=== PATIENT | female | born 1945 | race Caucasian/White ===

== ENCOUNTER 2017-04-26 10:47 | Inpatient (IN) | payer BC, MEDICARE ==
[~2017-04-26] VITALS: Ht 160 cm; Wt 80.4 kg
[2017-04-26] VITALS (11 sets, daily range): BP systolic 106–157; BP diastolic 44–98
[~2017-04-26 10:47] MED LIST: ALPR0.254 PO; ASCO500C5 PO; ATOR1TAB PO; CHOL20002 PO; CLOP75TA41 PO; DULO1CAP3 PO; FURO20TA PO; GABA-339 PO; HYDR2INJ PO; ISOS30TA4 PO; LINA5TAB PO; MAGN400T18 PO; METO25TA5 PO; NIAC500T71 PO; POTA10TA51 PO; PRI50T PO; TRAZ100T2 PO; VALS40TA2 PO
[2017-04-26 11:37] LABS: Basophils # (auto) 0 uL; Basophils % (auto) 0.5 % (0.0-2.0); CONDITION Y; DEFINITIVE SEE PRINTOUT; Eosinophils # (auto) 0.2 uL; Eosinophils % (auto) 2.1 % (0.0-7.0); Hematocrit 22.3 % (36.0-46.0); Lymphocytes % (auto) 13.3 % (10.0-50.0); Mean Corpuscular Hemoglobin 20.2 pg (28.0-32.0); Mean Corpuscular Hgb Conc. 29.2 g/dL (32.0-36.0); Mean Corpuscular Volume 69.2 fL (80.0-100.0); Mean Platelet Volume 8.1 fL (7.4-10.4); Monocytes # (auto) 0.6 uL; Monocytes % (auto) 8.2 % (0.0-12.0); Neutrophils # (auto) 5.5 uL; Neutrophils % (auto) 75.9 % (37.0-80.0); Platelet Count (auto) 251 10^3/uL (140-450); White Blood Cell 7.3 10^3/uL (4.4-10.8)
[2017-04-26] MEDS ORDERED: SODIUM CHLORIDE 0.9% 1,000 ML IVB ONE (11:44)
[2017-04-26 11:48] LABS: Hemoglobin 6.5 g/dL (12.2-16.2)
[2017-04-26 11:58] LABS: Albumin 2.4 g/dL (3.4-5.0); BUN/Creatinine Ratio 25.3; Bilirubin, Total 0.2 mg/dL (0.2-1.0); Calcium 7.9 mg/dL (8.5-10.1); Potassium 5.4 mmol/L (3.5-5.1)
[2017-04-26 12:03] LABS: Anisocytosis Slight; Hypochromia Slight; Ovalocytes FEW; Platelet Estimate Adequate
[2017-04-26 12:30] LABS: Urine Bilirubin Negative (Negative); Urine Blood Negative /uL (Negative); Urine Color Yellow (Yellow); Urine Glucose Normal (Normal); Urine Ketone Negative (Negative); Urine RBC 2 /hpf (0 - 4); Urine Urobilinogen Normal (Negative); Urine WBC Clumps PRESENT /hpf (None Seen); Urine pH 5.5 (5.0-8.0)
[2017-04-26 12:31] LABS: Urine Nitrite POSITIVE (Negative)
[2017-04-26] MEDS ORDERED: LEVOFLOXACIN 500MG 100 ML IV ONE (13:00)
[2017-04-26 13:30] LABS: INR 0.89 (0.9-1.15); Partial Thromboplastin Time 23.6 sec (22.64-33.71); Prothrombin Time 9.7 sec (9.37-12.3)
[2017-04-26] MEDS ORDERED: metroNIDAZOLE 500MG/100ML 100 ML IV ONE (14:45)
[2017-04-26 14:52] LABS: Base Excess -4.4 mmol/L (-2.0-2.0); Blood 02Sat 95.3 % (96-100); Blood COHb 1.1 % (0.5-1.5); Blood MetHb 0.5 % (0.0-1.5); HCO3 23.2 mmol/L (22-26.0); HHb 4.6 % (0.0-5.0); MODE NASAL CANNULA; O2Hb 93.8 % (94.0-97.0); PCO2 59.9 mmHg (35.0-45.0); PCO2(T) 59.9 mmHg (35.0-45.0); PO2 105.5 mmHg (80.0-100.0); PO2(T) 105.5 mmHg (80.0-100.0); Sample Type Arterial; pH 7.205 (7.350-7.450)
[2017-04-26] MEDS ORDERED: HYDROmorphone HCL 2 MG TAB PO PRN ×2 (15:00→15:15)
[2017-04-26] MEDS ORDERED: ALPRAZolam 0.25 MG TAB PO PRN (15:00)
[2017-04-26] MEDS ORDERED: NITROGLYCERIN 0.4 MG SL TAB SL PRN (15:15)
[2017-04-26] MEDS ORDERED: METOPROLOL TARTRATE 25 MG TAB PO ONE (15:15)
[2017-04-26] MEDS ORDERED: VALSARTAN 80 MG TAB PO ONE (15:15)
[2017-04-26] MEDS ORDERED: TEMAZEPAM 15 MG CAP PO PRN (15:15)
[2017-04-26] MEDS ORDERED: ONDANSETRON HCL 4 MG/2 ML VIAL IV PRN (15:15)
[2017-04-26] MEDS ORDERED: ISOSORBIDE MONONITRATE 60 MG TAB PO ONE (15:15)
[2017-04-26] MEDS ORDERED: DEXTROSE (50%) 50ML SYRG IV PRN (15:15)
[2017-04-26] MEDS ORDERED: MORPHINE SULF INJ 2 MG/ML SYRINGE 1ML IV PRN (15:15)
[2017-04-26] MEDS: FAMOTIDINE 20 MG TAB PO SCH ×2 (15:57→23:01)
[2017-04-26 16:43] LABS: Base Excess -8.9 mmol/L (-2.0-2.0); Blood 02Sat 89.7 % (96-100); Blood COHb 0.6 % (0.5-1.5); Blood MetHb 0.3 % (0.0-1.5); HCO3 18.5 mmol/L (22-26.0); HHb 10.2 % (0.0-5.0); MODE NASAL CANNULA; O2Hb 88.9 % (94.0-97.0); PCO2 47.7 mmHg (35.0-45.0); PCO2(T) 47.7 mmHg (35.0-45.0); PO2 71.2 mmHg (80.0-100.0); PO2(T) 71.2 mmHg (80.0-100.0); Room 1029-ERT; Sample Type Arterial; pH 7.207 (7.350-7.450)
[2017-04-26] MEDS: SODIUM CHLORIDE 0.9% 1,000 ML IV SCH (17:11)
[2017-04-26] MEDS: InsuLIN REG 1unit/0.01ml Soln (100units/ml) SC SCH ×2 (17:47→22:00)
[2017-04-26] MEDS: ACCU-CHEK COMFORT CURVE STRIP VI SCH ×2 (17:47→23:01)
[2017-04-26] MEDS: NIACIN 100 MG TAB PO SCH (18:00)
[2017-04-26] MEDS: IPRATROPIUM BROM 0.5 MG/2.5ML INH SOL NEB SCH (18:19)
[2017-04-26] MEDS: ALBUTEROL SULF 2.5 MG/0.5ML(0.5%) NEB SOLN NEB SCH (18:19)
[2017-04-26] MEDS: Boost Glucose Control 8 Ounces PO SCH ×2 (18:20→22:00)
[2017-04-26 20:44] LABS: Allen Test Modified; Base Excess -7.6 mmol/L (-2.0-2.0); Blood 02Sat 78.9 % (96-100); Blood COHb 0.9 % (0.5-1.5); Blood MetHb 0.2 % (0.0-1.5); HCO3 20.2 mmol/L (22-26.0); HHb 20.9 % (0.0-5.0); MODE NASAL CANNULA; PCO2 51.5 mmHg (35.0-45.0); PCO2(T) 51.5 mmHg (35.0-45.0); PO2 49.6 mmHg (80.0-100.0); PO2(T) 49.6 mmHg (80.0-100.0); Room 1029-ERT; Sample Type Arterial; pH 7.212 (7.350-7.450)
[2017-04-26] MEDS ORDERED: POTASSIUM CHL 20 Meq TABLET PO SCH (22:00)
[2017-04-26] MEDS: metroNIDAZOLE 500MG/100ML 100 ML IV SCH (22:00)
[2017-04-26] MEDS ORDERED: MAGNESIUM OXIDE 400 MG TAB PO SCH ×2 (22:00)
[2017-04-26 22:18] LABS: Allen Test Yes; Base Excess -9.5 mmol/L (-2.0-2.0); Blood 02Sat 94.2 % (96-100); Blood COHb 0.6 % (0.5-1.5); Blood MetHb 0.4 % (0.0-1.5); HCO3 18.3 mmol/L (22-26.0); HHb 5.7 % (0.0-5.0); MODE MASK - BIPAP; O2Hb 93.3 % (94.0-97.0); PCO2 48.6 mmHg (35.0-45.0); PCO2(T) 48.6 mmHg (35.0-45.0); PIP 12; PO2 86.5 mmHg (80.0-100.0); PO2(T) 86.5 mmHg (80.0-100.0); Room 1029-ERT; Sample Type Arterial; Spont Vt 515; pH 7.194 (7.350-7.450)
[2017-04-26] MEDS: traZODone HCL 50 MG TAB PO SCH (23:00)
[2017-04-26] MEDS: METOPROLOL TARTRATE 25 MG TAB PO SCH (23:00)
[2017-04-26] MEDS: ATORVASTATIN 20 MG TAB PO SCH (23:00)
[2017-04-26] MEDS: GABAPENTIN 300 MG CAP PO SCH (23:01)
[2017-04-27] MEDS: ALBUTEROL SULF 2.5 MG/0.5ML(0.5%) NEB SOLN NEB SCH ×4 (00:28→18:45)
[2017-04-27] MEDS: IPRATROPIUM BROM 0.5 MG/2.5ML INH SOL NEB SCH ×4 (00:28→18:45)
[2017-04-27] MEDS ORDERED: SODIUM BICARBONATE 8.4 % INJ 50ML VIAL IV ONE (00:30)
[2017-04-27 02:13] LABS: Allen Test Modified; Base Excess -5.7 mmol/L (-2.0-2.0); Blood 02Sat 94.5 % (96-100); Blood COHb 0.3 % (0.5-1.5); Blood MetHb 0.5 % (0.0-1.5); HCO3 21.1 mmol/L (22-26.0); HHb 5.5 % (0.0-5.0); MODE MASK - BIPAP; O2Hb 93.7 % (94.0-97.0); PCO2 47.3 mmHg (35.0-45.0); PCO2(T) 47.3 mmHg (35.0-45.0); PIP 12; PO2 86.8 mmHg (80.0-100.0); PO2(T) 86.8 mmHg (80.0-100.0); Room 1029-ERT; Sample Type Arterial; Spont Vt 459; pH 7.267 (7.350-7.450)
[2017-04-27 04:27] LABS: Basophils # (auto) 0.1 uL; Basophils % (auto) 0.5 % (0.0-2.0); CONDITION Y; DEFINITIVE SEE PRINTOUT; Eosinophils # (auto) 0.1 uL; Eosinophils % (auto) 0.6 % (0.0-7.0); Hematocrit 28.6 % (36.0-46.0); Lymphocytes # (auto) 0.7 uL; Lymphocytes % (auto) 7.7 % (10.0-50.0); Mean Corpuscular Hemoglobin 23.1 pg (28.0-32.0); Mean Corpuscular Hgb Conc. 31.5 g/dL (32.0-36.0); Mean Corpuscular Volume 73.2 fL (80.0-100.0); Mean Platelet Volume 8.2 fL (7.4-10.4); Monocytes # (auto) 0.6 uL; Monocytes % (auto) 5.9 % (0.0-12.0); Neutrophils % (auto) 85.3 % (37.0-80.0); Platelet Count (auto) 239 10^3/uL (140-450); White Blood Cell 9.4 10^3/uL (4.4-10.8)
[2017-04-27 04:37] LABS: Red Cell Distribution Width 21.6 % (11.6-16.0)
[2017-04-27 04:49] LABS: Albumin 2.2 g/dL (3.4-5.0); BUN/Creatinine Ratio 27.6; Calcium 7.4 mg/dL (8.5-10.1); Magnesium 2.6 mg/dL (1.6-2.6); Potassium 5.1 mmol/L (3.5-5.1)
[2017-04-27 04:53] LABS: Bilirubin, Total 0.2 mg/dL (0.2-1.0); Total Protein 5.8 g/dL (6.4-8.2)
[2017-04-27 05:00] LABS: Platelet Estimate Adequate
[2017-04-27 05:01] LABS: Anisocytosis Moderate; Microcytosis Moderate
[2017-04-27 05:02] LABS: Basophilic Stippling FEW; Ovalocytes FEW
[2017-04-27 05:03] LABS: Hypersegmented Neutrophils Present
[2017-04-27] MEDS: metroNIDAZOLE 500MG/100ML 100 ML IV SCH ×3 (05:38→22:12)
[2017-04-27] MEDS: Boost Glucose Control 8 Ounces PO SCH ×4 (06:15→22:12)
[2017-04-27] MEDS: ACCU-CHEK COMFORT CURVE STRIP VI SCH ×4 (06:42→22:15)
[2017-04-27] MEDS: InsuLIN REG 1unit/0.01ml Soln (100units/ml) SC SCH ×4 (06:43→22:14)
[2017-04-27] MEDS: NIACIN 100 MG TAB PO SCH ×2 (08:00→18:46)
[2017-04-27] MEDS: SODIUM CHLORIDE 0.9% 1,000 ML IV SCH (08:02)
[2017-04-27 08:04] VITALS: BP 122/56
[2017-04-27 08:15] LABS: Allen Test Yes; Base Excess -3.4 mmol/L (-2.0-2.0); Blood 02Sat 91.8 % (96-100); Blood COHb 0.8 % (0.5-1.5); Blood MetHb 0.3 % (0.0-1.5); HCO3 23.5 mmol/L (22-26.0); HHb 8.1 % (0.0-5.0); MODE MASK - BIPAP; O2Hb 90.8 % (94.0-97.0); PCO2 52.1 mmHg (35.0-45.0); PCO2(T) 52.1 mmHg (35.0-45.0); PO2 72.4 mmHg (80.0-100.0); PO2(T) 72.4 mmHg (80.0-100.0); Pressure Support 7; Room 1029-ERT; Sample Type Arterial; Spont Vt 550; pH 7.272 (7.350-7.450)
[2017-04-27] MEDS: ASCORBIC ACID 500 MG TAB PO SCH (10:00)
[2017-04-27] MEDS: CHOLECALCIFEROL (VITD3) 1,000 UNIT TAB PO SCH (10:00)
[2017-04-27] MEDS: DULoxetine HCL 30 MG CAP PO SCH (10:00)
[2017-04-27] MEDS: ISOSORBIDE MONONITRATE 60 MG TAB PO SCH (10:00)
[2017-04-27] MEDS ORDERED: VALSARTAN 80 MG TAB PO SCH (10:00)
[2017-04-27] MEDS: MULTIPLE VITAMIN TAB PO SCH (10:00)
[2017-04-27] MEDS ORDERED: ISOSORBIDE MONONITRATE 60 MG TAB PO SCH (10:00)
[2017-04-27] MEDS: FAMOTIDINE 20 MG TAB PO SCH ×2 (10:00→22:14)
[2017-04-27] MEDS: GABAPENTIN 300 MG CAP PO SCH ×2 (10:00→22:14)
[2017-04-27] MEDS: METOPROLOL TARTRATE 25 MG TAB PO SCH ×2 (10:00→22:13)
[2017-04-27 10:30] VITALS: BP 125/62
[2017-04-27] MEDS: LEVOFLOXACIN 250MG 50 ML IV SCH (10:41)
[2017-04-27 12:25] VITALS: BP 118/53
[2017-04-27 14:09] VITALS: BP 123/62
[2017-04-27 18:09] LABS: Allen Test Yes; Base Excess -2.9 mmol/L (-2.0-2.0); Blood COHb 0.4 % (0.5-1.5); Blood MetHb 0.4 % (0.0-1.5); HCO3 23.7 mmol/L (22-26.0); HHb 6.9 % (0.0-5.0); MODE NASAL CANNULA; O2Hb 92.3 % (94.0-97.0); PCO2 49.7 mmHg (35.0-45.0); PCO2(T) 49.7 mmHg (35.0-45.0); PO2 76.3 mmHg (80.0-100.0); PO2(T) 76.3 mmHg (80.0-100.0); Room 1029-ERT; Sample Type Arterial; pH 7.296 (7.350-7.450)
[2017-04-27 20:30] VITALS: BP 148/69
[2017-04-27] MEDS: traZODone HCL 50 MG TAB PO SCH (22:12)
[2017-04-27] MEDS: ATORVASTATIN 20 MG TAB PO SCH (22:13)
[2017-04-27] MEDS: MORPHINE SULF INJ 2 MG/ML SYRINGE 1ML IV PRN (22:16)
[2017-04-28] VITALS: BP 151/73
[2017-04-28] MEDS: SODIUM CHLORIDE 0.9% 1,000 ML IV SCH (00:03)
[2017-04-28 04:00] VITALS: BP 182/73
[2017-04-28] MEDS: metroNIDAZOLE 500MG/100ML 100 ML IV SCH ×3 (05:14→21:52)
[2017-04-28] MEDS: Boost Glucose Control 8 Ounces PO SCH ×4 (05:14→21:55)
[2017-04-28] MEDS: cloNIDine HCL 0.1 MG TAB PO PRN (05:15)
[2017-04-28 06:31] LABS: Basophils # (auto) 0 uL; Basophils % (auto) 0.1 % (0.0-2.0); CONDITION Y; DEFINITIVE SEE PRINTOUT; Eosinophils # (auto) 0.1 uL; Hematocrit 30.5 % (36.0-46.0); Hemoglobin 9.3 g/dL (12.2-16.2); Lymphocytes # (auto) 0.8 uL; Lymphocytes % (auto) 8.5 % (10.0-50.0); Mean Corpuscular Hemoglobin 22.7 pg (28.0-32.0); Mean Corpuscular Hgb Conc. 30.5 g/dL (32.0-36.0); Mean Corpuscular Volume 74.5 fL (80.0-100.0); Mean Platelet Volume 8.4 fL (7.4-10.4); Monocytes # (auto) 0.6 uL; Monocytes % (auto) 7.1 % (0.0-12.0); Neutrophils # (auto) 7.5 uL; Neutrophils % (auto) 83.3 % (37.0-80.0); Platelet Count (auto) 249 10^3/uL (140-450)
[2017-04-28] MEDS: ACCU-CHEK COMFORT CURVE STRIP VI SCH ×4 (06:31→22:03)
[2017-04-28] MEDS: InsuLIN REG 1unit/0.01ml Soln (100units/ml) SC SCH ×4 (06:32→21:54)
[2017-04-28 06:46] LABS: Potassium 4.1 mmol/L (3.5-5.1)
[2017-04-28 06:48] LABS: Red Cell Distribution Width 22.7 % (11.6-16.0)
[2017-04-28 06:50] LABS: BUN/Creatinine Ratio 26.7; Calcium 8.1 mg/dL (8.5-10.1); Magnesium 2.4 mg/dL (1.6-2.6); Phosphorus 2.2 mg/dL (2.5-4.90)
[2017-04-28] MEDS: MORPHINE SULF INJ 2 MG/ML SYRINGE 1ML IV PRN ×2 (06:59→22:06)
[2017-04-28] MEDS: ALBUTEROL SULF 2.5 MG/0.5ML(0.5%) NEB SOLN NEB SCH ×4 (07:20→21:03)
[2017-04-28] MEDS: IPRATROPIUM BROM 0.5 MG/2.5ML INH SOL NEB SCH ×4 (07:20→21:03)
[2017-04-28] MEDS: NIACIN 100 MG TAB PO SCH (08:00)
[2017-04-28] MEDS ORDERED: LIDOCAINE VISCOUS 2% 15ML UD ONE ×2 (09:08→18:12)
[2017-04-28] MEDS ORDERED: diphenhdrAMINE HCL 50 MG/1 ML VL ONE (09:08)
[2017-04-28] MEDS ORDERED: SODIUM CHLORIDE LOCK 10 ML ONE (09:08)
[2017-04-28] MEDS ORDERED: MIDAZOLAM HCL 5 MG/ML-1ML VIAL ONE (09:08)
[2017-04-28 10:10] LABS: Microcytosis Moderate
[2017-04-28 10:17] LABS: Anisocytosis Moderate; Hypochromia Moderate; Platelet Estimate Adequate
[2017-04-28 10:19] LABS: Ovalocytes FEW; Stomatocytes Few
[2017-04-28] MEDS: LEVOFLOXACIN 250MG 50 ML IV SCH (11:17)
[2017-04-28] MEDS: D5W/SOD CHL 0.45% 1,000 ML IV SCH ×2 (11:17→23:05)
[2017-04-28] MEDS: SODIUM FERR GLUC 62.5MG/5ML 125 MG in SODIUM CHL 0.9% 100 ML IV SCH (11:17)
[2017-04-28] MEDS: DULoxetine HCL 30 MG CAP PO SCH (11:19)
[2017-04-28] MEDS: VALSARTAN 80 MG TAB PO SCH (11:36)
[2017-04-28] MEDS: METOPROLOL TARTRATE 25 MG TAB PO SCH ×2 (11:36→21:53)
[2017-04-28] MEDS: ISOSORBIDE MONONITRATE 60 MG TAB PO SCH (11:36)
[2017-04-28] MEDS: MULTIPLE VITAMIN TAB PO SCH (11:37)
[2017-04-28] MEDS: ASCORBIC ACID 500 MG TAB PO SCH (11:37)
[2017-04-28] MEDS: CHOLECALCIFEROL (VITD3) 1,000 UNIT TAB PO SCH (11:37)
[2017-04-28] MEDS: GABAPENTIN 300 MG CAP PO SCH ×2 (11:37→21:54)
[2017-04-28] MEDS: FAMOTIDINE 20 MG TAB PO SCH ×2 (11:37→21:53)
[2017-04-28 12:00] VITALS: BP 176/78
[2017-04-28 13:38] LABS: Allen Test Modified; Base Excess -1.7 mmol/L (-2.0-2.0); Blood COHb 0.3 % (0.5-1.5); Blood MetHb 0.1 % (0.0-1.5); MODE NASAL CANNULA; O2Hb 92.6 % (94.0-97.0); PCO2 44.8 mmHg (35.0-45.0); PCO2(T) 44.8 mmHg (35.0-45.0); PO2 73.8 mmHg (80.0-100.0); PO2(T) 73.8 mmHg (80.0-100.0); Room 0265D; Sample Type Arterial; pH 7.346 (7.350-7.450)
[2017-04-28 16:00] VITALS: BP 153/71
[2017-04-28] MEDS ORDERED: LIDOCAINE VISCOUS 2 % SOL 100ML MT ONE (18:15)
[2017-04-28] MEDS ORDERED: MIDAZOLAM HCL 5 MG/ML-1ML VIAL IV ONE (18:26)
[2017-04-28] MEDS ORDERED: fentaNYL CITRATE 100 MCG/2 ML VL IV ONE ×2 (18:26→18:28)
[2017-04-28] MEDS: fentaNYL CITRATE 100 MCG/2 ML VL ONE ×2 (18:26→18:28)
[2017-04-28 19:48] VITALS: BP 151/74
[2017-04-28] MEDS: Niacin SR 500mg TAB PO SCH (21:52)
[2017-04-28] MEDS: ATORVASTATIN 20 MG TAB PO SCH (21:53)
[2017-04-28] MEDS: traZODone HCL 50 MG TAB PO SCH (21:53)
[2017-04-28 23:50] VITALS: BP 138/61
[2017-04-29] MEDS: MORPHINE SULF INJ 2 MG/ML SYRINGE 1ML IV PRN ×5 (02:36→21:30)
[2017-04-29 04:00] VITALS: BP 151/75
[2017-04-29] MEDS: ALBUTEROL SULF 2.5 MG/0.5ML(0.5%) NEB SOLN NEB SCH ×4 (06:10→23:36)
[2017-04-29] MEDS: IPRATROPIUM BROM 0.5 MG/2.5ML INH SOL NEB SCH ×4 (06:10→23:36)
[2017-04-29] MEDS: InsuLIN REG 1unit/0.01ml Soln (100units/ml) SC SCH ×4 (06:12→21:57)
[2017-04-29] MEDS: metroNIDAZOLE 500MG/100ML 100 ML IV SCH ×2 (06:12→14:31)
[2017-04-29] MEDS: Boost Glucose Control 8 Ounces PO SCH ×4 (06:12→21:49)
[2017-04-29] MEDS: ACCU-CHEK COMFORT CURVE STRIP VI SCH ×4 (06:13→21:50)
[2017-04-29] MEDS: D5W/SOD CHL 0.45% 1,000 ML IV SCH (06:16)
[2017-04-29 07:35] VITALS: BP 171/77
[2017-04-29] MEDS: cloNIDine HCL 0.1 MG TAB PO PRN (07:52)
[2017-04-29 08:30] VITALS: BP 159/69
[2017-04-29 08:39] LABS: Allen Test Yes; Base Excess -1.3 mmol/L (-2.0-2.0); Blood 02Sat 94.9 % (96-100); Blood COHb 0.1 % (0.5-1.5); Blood MetHb 0.3 % (0.0-1.5); HHb 5.1 % (0.0-5.0); MODE NASAL CANNULA; O2Hb 94.5 % (94.0-97.0); PCO2 43.1 mmHg (35.0-45.0); PCO2(T) 43.1 mmHg (35.0-45.0); PO2 83.1 mmHg (80.0-100.0); PO2(T) 83.1 mmHg (80.0-100.0); Room 0265D; Sample Type Arterial; pH 7.364 (7.350-7.450)
[2017-04-29] MEDS: LEVOFLOXACIN 250MG 50 ML IV SCH (09:20)
[2017-04-29] MEDS: CHOLECALCIFEROL (VITD3) 1,000 UNIT TAB PO SCH (09:21)
[2017-04-29] MEDS: DULoxetine HCL 30 MG CAP PO SCH (09:21)
[2017-04-29] MEDS: GABAPENTIN 300 MG CAP PO SCH ×2 (09:21→21:50)
[2017-04-29] MEDS: METOPROLOL TARTRATE 25 MG TAB PO SCH ×2 (09:22→21:50)
[2017-04-29] MEDS: ASCORBIC ACID 500 MG TAB PO SCH (09:23)
[2017-04-29] MEDS: MULTIPLE VITAMIN TAB PO SCH (09:23)
[2017-04-29] MEDS: VALSARTAN 80 MG TAB PO SCH (09:23)
[2017-04-29] MEDS: ISOSORBIDE MONONITRATE 60 MG TAB PO SCH (09:24)
[2017-04-29] MEDS: FAMOTIDINE 20 MG TAB PO SCH ×2 (09:24→21:50)
[2017-04-29] MEDS: Niacin SR 500mg TAB PO SCH ×2 (09:25→21:50)
[2017-04-29] MEDS: SODIUM FERR GLUC 62.5MG/5ML 125 MG in SODIUM CHL 0.9% 100 ML IV SCH (09:36)
[2017-04-29 12:00] VITALS: BP 136/55
[2017-04-29 16:10] VITALS: BP 126/53
[2017-04-29 20:00] VITALS: BP 158/71
[2017-04-29] MEDS: ATORVASTATIN 20 MG TAB PO SCH (21:49)
[2017-04-29] MEDS: traZODone HCL 50 MG TAB PO SCH (21:49)
[2017-04-30] VITALS: BP 150/73
[2017-04-30] MEDS: D5W/SOD CHL 0.45% 1,000 ML IV SCH ×2 (01:45→17:26)
[2017-04-30 03:09] VITALS: BP 151/97
[2017-04-30] MEDS: MORPHINE SULF INJ 2 MG/ML SYRINGE 1ML IV PRN ×4 (03:20→18:52)
[2017-04-30 04:00] VITALS: BP 152/72
[2017-04-30 05:46] LABS: Basophils # (auto) 0 uL; Basophils % (auto) 0.4 % (0.0-2.0); CONDITION Y; DEFINITIVE SEE PRINTOUT; Eosinophils # (auto) 0.2 uL; Eosinophils % (auto) 4.8 % (0.0-7.0); Hematocrit 28.2 % (36.0-46.0); Hemoglobin 8.7 g/dL (12.2-16.2); Lymphocytes # (auto) 0.7 uL; Lymphocytes % (auto) 17.8 % (10.0-50.0); Mean Corpuscular Hgb Conc. 30.8 g/dL (32.0-36.0); Mean Corpuscular Volume 74.5 fL (80.0-100.0); Mean Platelet Volume 7.8 fL (7.4-10.4); Monocytes # (auto) 0.5 uL; Monocytes % (auto) 12.3 % (0.0-12.0); Neutrophils # (auto) 2.7 uL; Neutrophils % (auto) 64.7 % (37.0-80.0); Platelet Count (auto) 236 10^3/uL (140-450); White Blood Cell 4.2 10^3/uL (4.4-10.8)
[2017-04-30 05:59] LABS: BUN/Creatinine Ratio 18.3; Calcium 7.7 mg/dL (8.5-10.1); Magnesium 1.9 mg/dL (1.6-2.6); Potassium 3.7 mmol/L (3.5-5.1)
[2017-04-30] MEDS: Boost Glucose Control 8 Ounces PO SCH ×4 (06:00→21:59)
[2017-04-30] MEDS: InsuLIN REG 1unit/0.01ml Soln (100units/ml) SC SCH ×4 (06:07→22:09)
[2017-04-30] MEDS: ACCU-CHEK COMFORT CURVE STRIP VI SCH ×4 (06:07→22:05)
[2017-04-30 06:19] LABS: Red Cell Distribution Width 23.9 % (11.6-16.0)
[2017-04-30] MEDS: IPRATROPIUM BROM 0.5 MG/2.5ML INH SOL NEB SCH ×3 (07:14→19:40)
[2017-04-30] MEDS: ALBUTEROL SULF 2.5 MG/0.5ML(0.5%) NEB SOLN NEB SCH ×3 (07:14→19:40)
[2017-04-30 08:05] LABS: Anisocytosis Moderate; Hypochromia Moderate; Microcytosis Moderate; Ovalocytes FEW; Platelet Estimate Adequate
[2017-04-30] MEDS: DULoxetine HCL 30 MG CAP PO SCH (10:08)
[2017-04-30] MEDS: VALSARTAN 80 MG TAB PO SCH (10:11)
[2017-04-30] MEDS: CHOLECALCIFEROL (VITD3) 1,000 UNIT TAB PO SCH (10:12)
[2017-04-30] MEDS: MULTIPLE VITAMIN TAB PO SCH (10:12)
[2017-04-30] MEDS: ASCORBIC ACID 500 MG TAB PO SCH (10:12)
[2017-04-30] MEDS: FAMOTIDINE 20 MG TAB PO SCH ×2 (10:12→21:57)
[2017-04-30] MEDS: GABAPENTIN 300 MG CAP PO SCH ×2 (10:12→21:57)
[2017-04-30] MEDS: METOPROLOL TARTRATE 25 MG TAB PO SCH ×2 (10:13→21:57)
[2017-04-30] MEDS: Niacin SR 500mg TAB PO SCH ×2 (10:21→21:58)
[2017-04-30] MEDS: ISOSORBIDE MONONITRATE 60 MG TAB PO SCH (10:24)
[2017-04-30] MEDS ORDERED: NEUTRA-PHOS TABLET PO ONE ×2 (12:45→16:30)
[2017-04-30] MEDS ORDERED: POTASSIUM CHL 20 Meq TABLET PO ONE (12:45)
[2017-04-30] MEDS ORDERED: BUMETANIDE (0.25MG/ML) 4 ML VIAL IV ONE (12:45)
[2017-04-30 13:00] VITALS: BP 156/65
[2017-04-30] MEDS: SODIUM FERR GLUC 62.5MG/5ML 125 MG in SODIUM CHL 0.9% 100 ML IV SCH (13:16)
[2017-04-30 18:05] VITALS: BP 151/58
[2017-04-30 21:47] VITALS: BP 150/69
[2017-04-30] MEDS: ATORVASTATIN 20 MG TAB PO SCH (21:58)
[2017-04-30] MEDS: traZODone HCL 50 MG TAB PO SCH (21:58)
[2017-04-30] MEDS: ACETAMINOPHEN 325 MG TAB PO PRN (21:58)
[2017-05-01] MEDS: ALBUTEROL SULF 2.5 MG/0.5ML(0.5%) NEB SOLN NEB SCH ×5 (00:21→23:51)
[2017-05-01] MEDS: IPRATROPIUM BROM 0.5 MG/2.5ML INH SOL NEB SCH ×5 (00:21→23:51)
[2017-05-01] MEDS: MORPHINE SULF INJ 2 MG/ML SYRINGE 1ML IV PRN ×6 (00:41→22:32)
[2017-05-01 04:37] VITALS: BP 148/73
[2017-05-01] MEDS: D5W/SOD CHL 0.45% 1,000 ML IV SCH ×2 (05:02→17:45)
[2017-05-01] MEDS: Boost Glucose Control 8 Ounces PO SCH ×4 (06:07→22:27)
[2017-05-01] MEDS: ACCU-CHEK COMFORT CURVE STRIP VI SCH ×4 (06:19→22:31)
[2017-05-01] MEDS: InsuLIN REG 1unit/0.01ml Soln (100units/ml) SC SCH ×4 (06:19→22:31)
[2017-05-01 06:24] LABS: Basophils # (auto) 0 uL; Basophils % (auto) 0.4 % (0.0-2.0); CONDITION Y; DEFINITIVE SEE PRINTOUT; Eosinophils # (auto) 0.3 uL; Eosinophils % (auto) 5.7 % (0.0-7.0); Hematocrit 30.8 % (36.0-46.0); Hemoglobin 9.5 g/dL (12.2-16.2); Lymphocytes # (auto) 0.8 uL; Lymphocytes % (auto) 17.4 % (10.0-50.0); Mean Corpuscular Hemoglobin 23.2 pg (28.0-32.0); Mean Corpuscular Hgb Conc. 30.7 g/dL (32.0-36.0); Mean Corpuscular Volume 75.5 fL (80.0-100.0); Mean Platelet Volume 7.9 fL (7.4-10.4); Monocytes # (auto) 0.4 uL; Monocytes % (auto) 8.7 % (0.0-12.0); Neutrophils # (auto) 3.3 uL; Neutrophils % (auto) 67.8 % (37.0-80.0); Platelet Count (auto) 258 10^3/uL (140-450); White Blood Cell 4.8 10^3/uL (4.4-10.8)
[2017-05-01 06:25] LABS: Red Cell Distribution Width 23.6 % (11.6-16.0)
[2017-05-01 06:58] LABS: Calcium 7.9 mg/dL (8.5-10.1); Magnesium 1.5 mg/dL (1.6-2.6); Phosphorus 2.4 mg/dL (2.5-4.90); Platelet Estimate Adequate; Potassium 3.4 mmol/L (3.5-5.1)
[2017-05-01 06:59] LABS: Anisocytosis Moderate; Hypochromia Moderate; Large Platelets FEW; Microcytosis Slight; Ovalocytes FEW; Polychromasia Slight
[2017-05-01] MEDS: SODIUM FERR GLUC 62.5MG/5ML 125 MG in SODIUM CHL 0.9% 100 ML IV SCH (08:53)
[2017-05-01] MEDS: FAMOTIDINE 20 MG TAB PO SCH ×2 (08:53→22:31)
[2017-05-01] MEDS: DULoxetine HCL 30 MG CAP PO SCH (08:53)
[2017-05-01] MEDS: ASCORBIC ACID 500 MG TAB PO SCH (08:53)
[2017-05-01] MEDS: Niacin SR 500mg TAB PO SCH ×2 (08:53→22:30)
[2017-05-01] MEDS: GABAPENTIN 300 MG CAP PO SCH ×2 (08:53→22:30)
[2017-05-01] MEDS: MULTIPLE VITAMIN TAB PO SCH (08:53)
[2017-05-01] MEDS: ISOSORBIDE MONONITRATE 60 MG TAB PO SCH (08:54)
[2017-05-01] MEDS: CHOLECALCIFEROL (VITD3) 1,000 UNIT TAB PO SCH (08:54)
[2017-05-01] MEDS: METOPROLOL TARTRATE 25 MG TAB PO SCH ×2 (08:55→22:30)
[2017-05-01] MEDS: VALSARTAN 80 MG TAB PO SCH (08:55)
[2017-05-01 09:00] VITALS: BP 154/81
[2017-05-01] MEDS ORDERED: NEUTRA-PHOS TABLET PO ONE (10:45)
[2017-05-01] MEDS ORDERED: PRIMIDONE 50 MG TAB PO ONE (11:00)
[2017-05-01] MEDS: MAGNESIUM SULFATE 1GM/100ML 100 ML IV SCH ×4 (11:00→17:01)
[2017-05-01] MEDS: guaiFENesin-DEXTROMETHORPHAN 5ML SYR PO PRN ×2 (12:05→17:20)
[2017-05-01 13:00] VITALS: BP 160/70
[2017-05-01 17:00] VITALS: BP 136/69
[2017-05-01] MEDS: PRO-STAT 64 30ML PO SCH (18:00)
[2017-05-01 21:16] VITALS: BP 153/75
[2017-05-01] MEDS: traZODone HCL 50 MG TAB PO SCH (22:28)
[2017-05-01] MEDS: ATORVASTATIN 20 MG TAB PO SCH (22:28)
[2017-05-01] MEDS: PRIMIDONE 50 MG TAB PO SCH (22:30)
[2017-05-01] MEDS: ACETAMINOPHEN 325 MG TAB PO PRN (22:32)
[2017-05-02] MEDS: D5W/SOD CHL 0.45% 1,000 ML IV SCH (02:38)
[2017-05-02] MEDS: MORPHINE SULF INJ 2 MG/ML SYRINGE 1ML IV PRN ×3 (03:36→13:09)
[2017-05-02] MEDS: guaiFENesin-DEXTROMETHORPHAN 5ML SYR PO PRN (03:36)
[2017-05-02 05:04] VITALS: BP 159/83
[2017-05-02] MEDS: Boost Glucose Control 8 Ounces PO SCH ×2 (06:00→12:47)
[2017-05-02 06:08] LABS: Basophils # (auto) 0 uL; Basophils % (auto) 0.8 % (0.0-2.0); CONDITION Y; DEFINITIVE SEE PRINTOUT; Eosinophils # (auto) 0.2 uL; Eosinophils % (auto) 5.8 % (0.0-7.0); Hematocrit 29.1 % (36.0-46.0); Hemoglobin 9.1 g/dL (12.2-16.2); Lymphocytes # (auto) 0.7 uL; Lymphocytes % (auto) 16.2 % (10.0-50.0); Mean Corpuscular Hemoglobin 23.3 pg (28.0-32.0); Mean Corpuscular Hgb Conc. 31.1 g/dL (32.0-36.0); Mean Corpuscular Volume 74.7 fL (80.0-100.0); Mean Platelet Volume 7.7 fL (7.4-10.4); Monocytes # (auto) 0.4 uL; Monocytes % (auto) 10.7 % (0.0-12.0); Neutrophils # (auto) 2.7 uL; Neutrophils % (auto) 66.5 % (37.0-80.0); Platelet Count (auto) 240 10^3/uL (140-450)
[2017-05-02 06:10] LABS: Red Cell Distribution Width 24.4 % (11.6-16.0)
[2017-05-02] MEDS: ALBUTEROL SULF 2.5 MG/0.5ML(0.5%) NEB SOLN NEB SCH ×2 (06:16→11:22)
[2017-05-02] MEDS: IPRATROPIUM BROM 0.5 MG/2.5ML INH SOL NEB SCH ×2 (06:16→11:22)
[2017-05-02 06:28] LABS: Calcium 7.9 mg/dL (8.5-10.1); Potassium 3.2 mmol/L (3.5-5.1)
[2017-05-02] MEDS: ACCU-CHEK COMFORT CURVE STRIP VI SCH ×2 (06:39→11:58)
[2017-05-02] MEDS: InsuLIN REG 1unit/0.01ml Soln (100units/ml) SC SCH ×2 (06:50→11:58)
[2017-05-02 08:00] VITALS: BP 159/75
[2017-05-02] MEDS: PRO-STAT 64 30ML PO SCH (08:00)
[2017-05-02] MEDS: Niacin SR 500mg TAB PO SCH (09:13)
[2017-05-02] MEDS: GABAPENTIN 300 MG CAP PO SCH (09:14)
[2017-05-02] MEDS: VALSARTAN 80 MG TAB PO SCH (09:14)
[2017-05-02] MEDS: CHOLECALCIFEROL (VITD3) 1,000 UNIT TAB PO SCH (09:14)
[2017-05-02] MEDS: ISOSORBIDE MONONITRATE 60 MG TAB PO SCH (09:15)
[2017-05-02] MEDS: METOPROLOL TARTRATE 25 MG TAB PO SCH (09:15)
[2017-05-02] MEDS: DULoxetine HCL 30 MG CAP PO SCH (09:15)
[2017-05-02] MEDS: FAMOTIDINE 20 MG TAB PO SCH (09:16)
[2017-05-02] MEDS: MULTIPLE VITAMIN TAB PO SCH (09:16)
[2017-05-02 09:31] LABS: Anisocytosis Moderate; Microcytosis Moderate
[2017-05-02 09:32] LABS: Hypochromia Moderate
[2017-05-02 09:33] LABS: Ovalocytes FEW; Platelet Estimate Adequate
[2017-05-02] MEDS: ASCORBIC ACID 500 MG TAB PO SCH (09:58)
[2017-05-02] MEDS: SODIUM FERR GLUC 62.5MG/5ML 125 MG in SODIUM CHL 0.9% 100 ML IV SCH (09:58)
[2017-05-02] MEDS: PRIMIDONE 50 MG TAB PO SCH (09:58)
[2017-05-02] MEDS ORDERED: POTASSIUM CHL 20 Meq TABLET PO ONE (11:15)
[2017-05-02 12:00] VITALS: BP 158/77
[2017-05-02 14:07] VITALS: BP 159/75
== END 2017-05-02 15:00 | disposition home or self-care (01) | DRG 64 ==
LOC: ER 10:47 → TELE 10:48 → DOU IN ICU 04-27 20:19 → TELE-EAST 04-30 11:12
PROVIDERS: ADMIT Internal Medicine; ATTEND Nurse Practitioner Acute Care
PROC: 5A09357 Assistance with Respiratory Ventilation, Less than 24 Consecutive Hours, Continuous Positive Airway Pressure (ICD-10-PCS; principal; 2017-04-26)
PROC: 0DB68ZX Excision of Stomach, Via Natural or Artificial Opening Endoscopic, Diagnostic (ICD-10-PCS; 2017-04-26)
PROC: 0DB88ZX Excision of Small Intestine, Via Natural or Artificial Opening Endoscopic, Diagnostic (ICD-10-PCS; 2017-04-26)
PROC: 30233N1 Transfusion of Nonautologous Red Blood Cells into Peripheral Vein, Percutaneous Approach (ICD-10-PCS; 2017-04-26)
DX: I63.9 Cerebral infarction, unspecified (principal); G93.41 Metabolic encephalopathy; E43 Unspecified severe protein-calorie malnutrition; I50.43 Acute on chronic combined systolic (congestive) and diastolic (congestive) heart failure; J96.01 Acute respiratory failure with hypoxia; N17.0 Acute kidney failure with tubular necrosis; A04.9 Bacterial intestinal infection, unspecified; I13.0 Hypertensive heart and chronic kidney disease with heart failure and stage 1 through stage 4 chronic kidney disease, or unspecified chronic kidney disease; N30.00 Acute cystitis without hematuria; N18.4 Chronic kidney disease, stage 4 (severe); J98.11 Atelectasis; K22.10 Ulcer of esophagus without bleeding; K92.2 Gastrointestinal hemorrhage, unspecified; I25.10 Atherosclerotic heart disease of native coronary artery without angina pectoris; E78.5 Hyperlipidemia, unspecified; E11.21 Type 2 diabetes mellitus with diabetic nephropathy; R10.9 Unspecified abdominal pain; E87.5 Hyperkalemia; E11.22 Type 2 diabetes mellitus with diabetic chronic kidney disease; E83.41 Hypermagnesemia; E83.51 Hypocalcemia; J45.909 Unspecified asthma, uncomplicated; I67.2 Cerebral atherosclerosis; I27.2 Other secondary pulmonary hypertension; Z90.710 Acquired absence of both cervix and uterus; Z95.5 Presence of coronary angioplasty implant and graft; Z90.13 Acquired absence of bilateral breasts and nipples; Z85.3 Personal history of malignant neoplasm of breast; Z86.718 Personal history of other venous thrombosis and embolism; Z82.49 Family history of ischemic heart disease and other diseases of the circulatory system; D50.9 Iron deficiency anemia, unspecified; E83.39 Other disorders of phosphorus metabolism; E83.42 Hypomagnesemia; K44.9 Diaphragmatic hernia without obstruction or gangrene; Z98.49 Cataract extraction status, unspecified eye; K29.50 Unspecified chronic gastritis without bleeding
CPT/HCPCS: 36415; 36430; 36600; 43239; 70450; 71010; 74176; 80048; 80053; 81001; 82270; 82805; 82962; 83036; 83540; 83605; 83735; 84100; 84484; 85025; 85610; 85730; 86850; 86900; 86901; 86920; 87040; 87045; 87081; 87086; 87899; 92610; 93005; 93306; 93886; 94640; 94660; 96361; 96365; J1815; J1956; J2250; J3490

== ENCOUNTER 2017-07-06 01:49 | Inpatient (IN) | payer BC, MEDICARE ==
[~2017-07-06] VITALS: Ht 157.5 cm; Wt 74.3 kg
[2017-07-06] VITALS (13 sets, daily range): BP systolic 104–149; BP diastolic 55–83
[2017-07-06 02:20] LABS: Basophils # (auto) 0 uL; Basophils % (auto) 0.4 % (0.0-2.0); CONDITION Y; DEFINITIVE SEE PRINTOUT; Eosinophils # (auto) 0.2 uL; Eosinophils % (auto) 4.8 % (0.0-7.0); Hematocrit 18.1 % (36.0-46.0); Lymphocytes # (auto) 0.9 uL; Lymphocytes % (auto) 17.3 % (10.0-50.0); Mean Corpuscular Hemoglobin 27.4 pg (28.0-32.0); Mean Corpuscular Hgb Conc. 30.9 g/dL (32.0-36.0); Mean Corpuscular Volume 88.7 fL (80.0-100.0); Mean Platelet Volume 8.2 fL (7.4-10.4); Monocytes # (auto) 0.4 uL; Monocytes % (auto) 8.2 % (0.0-12.0); Neutrophils # (auto) 3.4 uL; Neutrophils % (auto) 69.3 % (37.0-80.0); Platelet Count (auto) 292 10^3/uL (140-450); Red Cell Distribution Width 18.6 % (11.6-16.0); White Blood Cell 4.9 10^3/uL (4.4-10.8)
[2017-07-06 02:25] LABS: Hemoglobin 5.6 g/dL (12.2-16.2)
[2017-07-06 02:58] LABS: Anion Gap 6 (5-15); Aspartate Aminotransferase 12 U/L (15-37); BUN/Creatinine Ratio 19.2; Blood Urea Nitrogen 23 mg/dL (7-18); Calcium 7.5 mg/dL (8.5-10.1); Carbon Dioxide 25 mmol/L (21-32); Chloride 115 mmol/L (98-107); GFR African American 57 mL/min; GFR Non-African American 47 mL/min; Glucose 178 mg/dL (74-106); Magnesium 2.8 mg/dL (1.6-2.6); Potassium 4.8 mmol/L (3.5-5.1); Sodium 146 mmol/L (136-145)
[2017-07-06 03:03] LABS: Alkaline Phosphatase 91 U/L (45-117); Bilirubin, Total 0.1 mg/dL (0.2-1.0); Total Protein 5.5 g/dL (6.4-8.2)
[2017-07-06 03:39] LABS: Urine Bilirubin Negative (Negative); Urine Blood Negative /uL (Negative); Urine Color Yellow (Yellow); Urine Glucose TRACE mg/dL (Normal); Urine Hyaline Cast FEW /lpf (0 - 2); Urine Ketone Negative (Negative); Urine Nitrite Negative (Negative); Urine RBC 1 /hpf (0 - 4); Urine Squamous Epithelial Cell FEW /hpf (<5); Urine Urobilinogen Normal (Negative); Urine pH 6.5 (5.0-8.0)
[2017-07-06] MEDS ORDERED: DEXTROSE (50%) 50ML SYRG IV PRN (05:45)
[2017-07-06] MEDS ORDERED: ONDANSETRON HCL 4 MG/2 ML VIAL IV PRN (05:45)
[2017-07-06] MEDS ORDERED: NITROGLYCERIN 0.4 MG SL TAB SL PRN (05:45)
[2017-07-06] MEDS ORDERED: MORPHINE SULF INJ 2 MG/ML SYRINGE 1ML IV PRN (05:45)
[2017-07-06] MEDS ORDERED: ACETAMINOPHEN 325 MG TAB PO PRN (05:45)
[2017-07-06] MEDS: InsuLIN REG 1unit/0.01ml Soln (100units/ml) SC SCH ×4 (06:00→23:54)
[2017-07-06] MEDS: SODIUM CHLORIDE 0.9% 1,000 ML IV SCH ×2 (06:05→19:21)
[2017-07-06] MEDS: ACCU-CHEK COMFORT CURVE STRIP VI SCH ×4 (06:24→23:54)
[2017-07-06] MEDS: PANTOPRAZOLE 40 MG/10 ML VIAL IV SCH ×3 (07:00→21:41)
[2017-07-06] MEDS: FUROSEMIDE 20 MG TAB PO SCH (09:56)
[2017-07-06] MEDS: VALSARTAN 80 MG TAB PO SCH (09:56)
[2017-07-06] MEDS: ISOSORBIDE MONONITRATE 60 MG TAB PO SCH (09:57)
[2017-07-06] MEDS: METOPROLOL SUCCINATE XL 50 MG TAB PO SCH (09:58)
[2017-07-06 11:01] LABS: Hematocrit 26.5 % (36.0-46.0); Hemoglobin 8.5 g/dL (12.2-16.2)
[2017-07-06 11:18] LABS: INR 0.92 (0.9-1.15); Partial Thromboplastin Time 23.2 sec (22.64-33.71)
[2017-07-06] MEDS: HYDROcodone-ACET 5/325MG TAB PO PRN ×2 (11:30→19:50)
[2017-07-06] MEDS: ATORVASTATIN 20 MG TAB PO SCH (21:41)
[2017-07-07] MEDS: HYDROcodone-ACET 5/325MG TAB PO PRN ×5 (04:36→23:41)
[2017-07-07 05:00] VITALS: BP 167/96
[2017-07-07] MEDS: ACCU-CHEK COMFORT CURVE STRIP VI SCH ×4 (05:56→23:41)
[2017-07-07] MEDS: InsuLIN REG 1unit/0.01ml Soln (100units/ml) SC SCH ×4 (05:56→23:41)
[2017-07-07 06:36] LABS: Basophils # (auto) 0 uL; Basophils % (auto) 0.3 % (0.0-2.0); CONDITION Y; Eosinophils # (auto) 0.2 uL; Eosinophils % (auto) 2.6 % (0.0-7.0); Hematocrit 30.5 % (36.0-46.0); Lymphocytes # (auto) 0.8 uL; Lymphocytes % (auto) 14.2 % (10.0-50.0); Mean Corpuscular Hemoglobin 28.7 pg (28.0-32.0); Mean Corpuscular Hgb Conc. 32.8 g/dL (32.0-36.0); Mean Corpuscular Volume 87.4 fL (80.0-100.0); Mean Platelet Volume 8.3 fL (7.4-10.4); Monocytes # (auto) 0.3 uL; Monocytes % (auto) 4.8 % (0.0-12.0); Neutrophils # (auto) 4.5 uL; Neutrophils % (auto) 78.1 % (37.0-80.0); Platelet Count (auto) 294 10^3/uL (140-450); Red Cell Distribution Width 16.8 % (11.6-16.0); White Blood Cell 5.8 10^3/uL (4.4-10.8)
[2017-07-07 06:56] LABS: BUN/Creatinine Ratio 16.7; Bilirubin, Total 0.1 mg/dL (0.2-1.0); Calcium 7.7 mg/dL (8.5-10.1); Potassium 4.8 mmol/L (3.5-5.1); Total Protein 5.9 g/dL (6.4-8.2)
[2017-07-07] MEDS: SODIUM CHLORIDE 0.9% 1,000 ML IV SCH ×2 (08:25→13:30)
[2017-07-07 09:00] VITALS: BP 176/75
[2017-07-07] MEDS ORDERED: SODIUM CHLORIDE LOCK 10 ML ONE (09:14)
[2017-07-07] MEDS ORDERED: LIDOCAINE VISCOUS 2% 15ML UD ONE (09:15)
[2017-07-07] MEDS ORDERED: diphenhdrAMINE HCL 50 MG/1 ML VL ONE (09:15)
[2017-07-07] MEDS: PANTOPRAZOLE 40 MG/10 ML VIAL IV SCH ×2 (10:10→21:47)
[2017-07-07] MEDS ORDERED: NALOXONE HCL 0.4 MG/ML VIAL ONE (11:16)
[2017-07-07] MEDS ORDERED: FLUMAZENIL 0.1 MG/ML INJ 10ML MDV IV ONE (11:16)
[2017-07-07] MEDS: LABETALOL HCL 5 MG/ML 4ML SYRINGE IV ONE ×2 (12:05→12:07)
[2017-07-07] MEDS: MIDAZOLAM HCL 5 MG/ML-1ML VIAL ONE ×2 (12:12→12:15)
[2017-07-07] MEDS: fentaNYL CITRATE 100 MCG/2 ML VL ONE ×2 (12:12→12:15)
[2017-07-07 13:00] VITALS: BP 142/80
[2017-07-07] MEDS: ISOSORBIDE MONONITRATE 60 MG TAB PO SCH (13:39)
[2017-07-07] MEDS: METOPROLOL SUCCINATE XL 50 MG TAB PO SCH (13:40)
[2017-07-07] MEDS: FUROSEMIDE 20 MG TAB PO SCH (13:40)
[2017-07-07] MEDS: VALSARTAN 80 MG TAB PO SCH (13:41)
[2017-07-07 17:08] VITALS: BP 143/83
[2017-07-07 21:35] VITALS: BP 152/77
[2017-07-07] MEDS: ATORVASTATIN 20 MG TAB PO SCH (21:47)
[2017-07-07] MEDS: GABAPENTIN 300 MG CAP PO SCH (21:48)
[2017-07-07] MEDS ORDERED: PRIMIDONE 50 MG TAB PO SCH (22:00)
[2017-07-08] MEDS: HYDROcodone-ACET 5/325MG TAB PO PRN ×3 (04:05→14:30)
[2017-07-08 04:45] VITALS: BP 182/79
[2017-07-08] MEDS: InsuLIN REG 1unit/0.01ml Soln (100units/ml) SC SCH ×2 (05:32→11:46)
[2017-07-08] MEDS: ACCU-CHEK COMFORT CURVE STRIP VI SCH ×2 (05:32→11:46)
[2017-07-08] MEDS: SODIUM CHLORIDE 0.9% 1,000 ML IV SCH (05:32)
[2017-07-08 05:37] LABS: Hematocrit 33.4 % (36.0-46.0); Hemoglobin 10.6 g/dL (12.2-16.2)
[2017-07-08] MEDS ORDERED: SODIUM CHLORIDE 0.9% 1,000 ML IV SCH (05:45)
[2017-07-08] MEDS ORDERED: cloNIDine HCL 0.1 MG TAB PO PRN (06:15)
[2017-07-08 08:02] VITALS: BP 175/76
[2017-07-08 08:45] VITALS: BP 175/76
[2017-07-08] MEDS: PANTOPRAZOLE 40 MG/10 ML VIAL IV SCH (09:58)
[2017-07-08] MEDS: VALSARTAN 80 MG TAB PO SCH (09:59)
[2017-07-08] MEDS: ISOSORBIDE MONONITRATE 60 MG TAB PO SCH (10:00)
[2017-07-08] MEDS: METOPROLOL SUCCINATE XL 50 MG TAB PO SCH (10:00)
[2017-07-08] MEDS: FUROSEMIDE 20 MG TAB PO SCH (10:01)
[2017-07-08] MEDS: GABAPENTIN 300 MG CAP PO SCH (10:01)
[2017-07-08 13:00] VITALS: BP 144/90
[2017-07-08] MEDS ORDERED: PANT40TA2 PO (13:03)
[2017-07-08 13:40] VITALS: BP 144/90
== END 2017-07-08 17:43 | disposition home or self-care (01) | DRG 377 ==
LOC: ER 01:49 → TELE 01:50 → TELE-WESTW 08:36
PROVIDERS: ADMIT Internal Medicine; ATTEND Internal Medicine
PROC: 30233N1 Transfusion of Nonautologous Red Blood Cells into Peripheral Vein, Percutaneous Approach (ICD-10-PCS; 2017-07-06)
PROC: 0W3P8ZZ Control Bleeding in Gastrointestinal Tract, Via Natural or Artificial Opening Endoscopic (ICD-10-PCS; principal; 2017-07-07 11:55)
DX: K31.82 Dieulafoy lesion (hemorrhagic) of stomach and duodenum (principal); N17.0 Acute kidney failure with tubular necrosis; E43 Unspecified severe protein-calorie malnutrition; I50.32 Chronic diastolic (congestive) heart failure; I13.0 Hypertensive heart and chronic kidney disease with heart failure and stage 1 through stage 4 chronic kidney disease, or unspecified chronic kidney disease; K92.2 Gastrointestinal hemorrhage, unspecified; R07.2 Precordial pain; I25.10 Atherosclerotic heart disease of native coronary artery without angina pectoris; E11.21 Type 2 diabetes mellitus with diabetic nephropathy; E11.22 Type 2 diabetes mellitus with diabetic chronic kidney disease; E78.5 Hyperlipidemia, unspecified; I12.9 Hypertensive chronic kidney disease with stage 1 through stage 4 chronic kidney disease, or unspecified chronic kidney disease; D63.8 Anemia in other chronic diseases classified elsewhere; N18.3 Chronic kidney disease, stage 3 (moderate); Z86.73 Personal history of transient ischemic attack (TIA), and cerebral infarction without residual deficits; Z68.28 Body mass index [BMI] 28.0-28.9, adult; Z98.61 Coronary angioplasty status; Z85.3 Personal history of malignant neoplasm of breast; Z90.710 Acquired absence of both cervix and uterus; Z90.13 Acquired absence of bilateral breasts and nipples; Z90.10 Acquired absence of unspecified breast and nipple; Z68.30 Body mass index [BMI] 30.0-30.9, adult
CPT/HCPCS: 36415; 43255; 71010; 80053; 81001; 82962; 83036; 83735; 84484; 85014; 85018; 85025; 85610; 85730; 86850; 86900; 86901; 86920; 87493; 93005; 94761; C9113; J1815; J2250; J3490

== ENCOUNTER 2019-08-13 19:00 | Emergency (ER) | payer BC, OTHER ==
[~2019-08-13] VITALS: Ht 160 cm; Wt 74.8 kg
[~2019-08-13 19:00] MED LIST changes: -CLOP75TA41 PO; -DULO1CAP3 PO; +DULO1CAP6 PO; +FURO1TAB33 PO; -FURO20TA PO; +PANT40TA2 PO; -POTA10TA51 PO; -PRI50T PO; +PRIM50TA5 PO
[2019-08-13] MEDS ORDERED: MORPHINE SULFATE 4 MG/ML SYR/VIAL IV ONE (21:45)
[2019-08-13] MEDS ORDERED: ONDANSETRON HCL 4 MG/2 ML VIAL IV ONE (21:45)
[2019-08-13 22:50] LABS: Basophils # (auto) 0 uL; Basophils % (auto) 0.9 % (0.0-2.0); Eosinophils # (auto) 0.1 uL; Eosinophils % (auto) 2.6 % (0.0-7.0); Hemoglobin 10.8 g/dL (12.2-16.2); Lymphocytes # (auto) 0.9 uL; Lymphocytes % (auto) 18.2 % (10.0-50.0); Mean Corpuscular Hemoglobin 30.5 pg (28.0-32.0); Mean Corpuscular Hgb Conc. 32.6 g/dL (32.0-36.0); Mean Corpuscular Volume 93.5 fL (80.0-100.0); Monocytes # (auto) 0.4 uL; Monocytes % (auto) 8.2 % (0.0-12.0); Neutrophils # (auto) 3.6 uL; Neutrophils % (auto) 70.1 % (37.0-80.0); Nucleated Red Blood Cells % 0.1 %; Platelet Count (auto) 204 10^3/uL (140-450); Red Blood Cells 3.53 10^6/uL (4.0-5.20); Red Cell Distribution Width 15.6 % (11.8-14.3); White Blood Cell 5.1 10^3/uL (4.4-10.8)
[2019-08-13 23:06] LABS: INR < 0.93 (0.9-1.15); Partial Thromboplastin Time 24.7 sec (23.64-32.05)
[2019-08-13 23:08] LABS: Albumin 2.1 g/dL (3.4-5.0); Potassium 4.2 mmol/L (3.5-5.1)
[2019-08-13 23:11] LABS: BUN/Creatinine Ratio 30.3
[2019-08-13 23:12] LABS: Bilirubin, Total 0.2 mg/dL (0.2-1.0); Total Protein 6.4 g/dL (6.4-8.2)
[2019-08-14] MEDS ORDERED: MORPHINE SULFATE 4 MG/ML SYR/VIAL IV ONE (00:30)
[2019-08-14] MEDS ORDERED: ONDANSETRON HCL 4 MG/2 ML VIAL IV ONE (00:30)
[2019-08-14 09:00] VITALS: BP 123/66
== END 2019-08-14 09:57 | disposition home or self-care (01) ==
LOC: EDBD 19:00 → ER 19:07
DX: S23.9XXA Sprain of unspecified parts of thorax, initial encounter (principal); S39.012A Strain of muscle, fascia and tendon of lower back, initial encounter; S20.219A Contusion of unspecified front wall of thorax, initial encounter; D64.9 Anemia, unspecified; I11.0 Hypertensive heart disease with heart failure; I50.9 Heart failure, unspecified; E11.9 Type 2 diabetes mellitus without complications; Z90.710 Acquired absence of both cervix and uterus; Z98.61 Coronary angioplasty status; Z88.1 Allergy status to other antibiotic agents; Z86.73 Personal history of transient ischemic attack (TIA), and cerebral infarction without residual deficits; W19.XXXA Unspecified fall, initial encounter; Y93.89 Activity, other specified; Y99.8 Other external cause status; Y92.89 Other specified places as the place of occurrence of the external cause
CPT/HCPCS: 36415; 71045; 71250; 72128; 72131; 72192; 80053; 85025; 85610; 85730; 93005; 96374; 96375; 96376; 99284; J2270; J2405